=== PATIENT | female | born 1955 | race Caucasian/White ===

== ENCOUNTER 2023-02-08 15:06 | Outpatient (CLI) | payer MEDICARE, SELFPAY ==
--- NOTE | 2023-02-08 14:45 | DI.RAD_ITS ---
Exam(s) XR CHEST 2V PA LATERAL EXAM: XR CHEST 2V PA LATERAL CLINICAL HISTORY: cough, R05.9, r/o pneumonia TECHNIQUE: 2D digital imaging was performed. COMPARISON: No exams were available for comparison FINDINGS: HEART: Normal size. Aorta: Not dilated. PULMONARY VASCULATURE: Normal. LUNGS: Clear. PLEURAL SPACE: No pleural effusion or pneumothorax. BONE:Degenerative disc changes. Hardware lower cervical spine. No compression fractures. IMPRESSION: No acute abnormality. DATA REPOSITORY: RADIATION DOSE DELIVERED:
== END 2023-02-08 15:26 ==
LOC: DI 15:07
PROVIDERS: Visit Provider Physician Assistant
DX: R05.9 Cough, unspecified (principal)
CPT/HCPCS: 71046

== ENCOUNTER 2023-02-08 15:40 | Outpatient (REF) | payer MEDICARE, SELFPAY | END 2023-02-08 15:41 | disposition home or self-care (01) | LOC: LBN 15:40 | PROVIDERS: Visit Provider Physician Assistant | DX: J02.9 Acute pharyngitis, unspecified (principal) | CPT/HCPCS: 87070 ==

== ENCOUNTER 2023-07-05 21:49 | Outpatient (REF) | payer MEDICARE, SELFPAY ==
[2023-07-05 21:37] LABS: Anion Gap 9.1 mmol/L (3-11); BUN 14 mg/dL (7-18); CO2 26.9 mmol/L (21.0-32.0); CREATININE 0.8 mg/dL (0.55-1.02); Calcium 10.2 mg/dL (8.5-10.1); Chloride 100 mmol/L (98-107); Estimated GFR 80.71 (mL/min/1.73m2); Glucose 201 mg/dL (74-106); Sodium 136 mmol/L (136-145)
== END 2023-07-05 21:50 | disposition home or self-care (01) ==
LOC: LBN 21:49
PROVIDERS: PCP Nurse Practitioner Family; Visit Provider Nurse Practitioner Family
DX: Z01.30 Encounter for examination of blood pressure without abnormal findings (principal); I10 Essential (primary) hypertension
CPT/HCPCS: 80048

== ENCOUNTER 2023-09-20 16:03 | Outpatient (REF) | payer MEDICARE, SELFPAY ==
[2023-09-20 20:54] LABS: Abs Immature Grans 0.01 10^3/uL (0.0-0.06); Absolute Basophil Count 0.04 10^3/uL (0.0-0.2); Absolute Eosinophil Count 0.04 10^3/uL (0.0-0.7); Absolute Lymphocyte Count 2.84 10^3/uL (1.2-3.4); Absolute Monocyte Count 0.62 10^3/uL (0.1-0.8); Absolute Neutrophil Count 4.96 10^3/uL (1.2-6.7); Basophils % 0.5; Eosinophils % 0.5; HCT 41.2 % (36.0-46.0); HGB 14.2 g/dL (11.2-15.7); Immature Grans % 0.1; Lymphocytes % 33.4; MCHC 34.5 % (32.0-36.0); MCV 87 fL (80-95); MPV 10.9 fL (8.0-11.0); Monocytes % 7.3; Neutrophils % 58.2; Platelet Count 212 10^3/uL (130-400); RBC 4.73 10^6/uL (3.93-5.22); RDW 11.5 % (11.7-14.6); WBC 8.51 10^3/uL (4.4-10.8)
[2023-09-20 21:06] LABS: ALT 37 U/L (14-59); AST 16 U/L (15-37); Albumin 4.4 g/dL (3.4-5.0); Alkaline Phosphatase 48 U/L (46-116); Anion Gap 11.3 mmol/L (3-11); BUN 19 mg/dL (7-18); Bilirubin, Total 0.4 mg/dL (0.2-1.0); CO2 28.7 mmol/L (21.0-32.0); CREATININE 0.7 mg/dL (0.55-1.02); Calcium 9.8 mg/dL (8.5-10.1); Chloride 100 mmol/L (98-107); Estimated GFR 94.73 (mL/min/1.73m2); Glucose 151 mg/dL (74-106); Magnesium 1.9 mg/dL (1.8-2.4); Potassium 3.7 mmol/L (3.5-5.1); Sodium 140 mmol/L (136-145); Total Protein 7.6 g/dL (6.4-8.2)
== END 2023-09-20 16:04 | disposition home or self-care (01) ==
LOC: LBN 16:03
PROVIDERS: PCP Nurse Practitioner Family; Visit Provider Physician Assistant
DX: J02.9 Acute pharyngitis, unspecified (principal); R53.83 Other fatigue; R53.1 Weakness; E11.9 Type 2 diabetes mellitus without complications; I10 Essential (primary) hypertension; N39.0 Urinary tract infection, site not specified
CPT/HCPCS: 80053; 87077; 83735; 85025; 87070; 87086; 87186

== ENCOUNTER 2023-09-20 16:14 | Outpatient (CLI) | payer MEDICARE, SELFPAY ==
--- NOTE | 2023-09-20 16:00 | RT.EKG_ITS ---
APPROVED REPORT Exam: Resting ECG Reason for Exam: Medication reveiw Patient Location: O HR:78 bpm ECG Measurements Heart Rate 78 AXIS MI 197 P 76 QRSd 94 QRS -7 QT 406 T 80 QTc 463 Conclusion Sinus rhythm...normal P axis, V-rate 50- 99 Normal Electrocardiogram
== END 2023-09-20 16:15 | disposition home or self-care (01) ==
LOC: DI.CM 16:16
PROVIDERS: PCP Nurse Practitioner Family; Visit Provider Physician Assistant
DX: R53.83 Other fatigue (principal)
CPT/HCPCS: 93010

== ENCOUNTER 2024-01-29 11:37 | Outpatient (REF) | payer MEDICARE, SELFPAY | END 2024-01-30 11:38 | disposition home or self-care (01) | LOC: LBN 11:37 | PROVIDERS: PCP Nurse Practitioner Family; Visit Provider Nurse Practitioner Family | DX: R31.9 Hematuria, unspecified (principal); R10.9 Unspecified abdominal pain | CPT/HCPCS: 87086 ==

== ENCOUNTER → 2024-02-14 01:52 | Outpatient (CLI) | payer MEDICARE, SELFPAY ==
--- NOTE | 2024-02-14 07:45 | DI.MRI_ITS ---
Exam(s) MR BRAIN WO EXAM: MR BRAIN WO CLINICAL HISTORY: new slurring of speech, CEREBRAL INFARCTION, GAIT MOBILITY, TIA ATTACK TECHNIQUE: Multiplanar multisequence MRI of the brain was performed. COMPARISON: CR XR CHEST 2V PA LATERAL from 02/08/2023 FINDINGS: CEREBRAL PARENCHYMA: There is no evidence of intracranial hemorrhage, mass effect, or shift of midline structures. There are no extra-axial fluid collections. Ventricles are not enlarged or shifted. There is no significant focal signal abnormality in the cerebellar hemispheres. Mild signal abnormal ity noted slightly left of center in the leif, not associated with restricted diffusion. There is no abnormal signal in the midbrain and thalami. There are multiple foci of FLAIR bright signal abnorma lity in the periventricular white matter consistent chronic small vessel disease. Not associated wit h hemorrhage nor surrounding edema nor restricted diffusion. There is no abnormal signal abnormality in the periventricular white matter. There is no significant focal signal abnormality evident on diffusion imaging to suggest acute ischem ic event. PITUITARY GLAND: No mass nor parasellar abnormality. No obvious abnormality in the cavernous sinuses. FLOW VOIDS: The expected flow void are noted. No evidence of obvious aneurysm nor obvious vascular ma lformation. PARANASAL SINUSES: The visualized paranasal sinuses appear unremarkable. No obvious finding ORBITS: No obvious findings. IMPRESSION: There are multiple bilateral foci of white matter signal abnormality consistent with chronic small ve ssel disease. These are not associated with hemorrhage, surrounding edema nor restricted diffusion. DATA REPOSITORY:
== END ==
PROVIDERS: PCP Nurse Practitioner Family; Visit Provider Nurse Practitioner Family
DX: I63.81 Other cerebral infarction due to occlusion or stenosis of small artery (principal); R26.89 Other abnormalities of gait and mobility; I65.23 Occlusion and stenosis of bilateral carotid arteries
CPT/HCPCS: 70551

== ENCOUNTER → 2024-10-01 12:33 | Outpatient (BNVA) | payer MEDICARE, SELFPAY | PROVIDERS: PCP Nurse Practitioner Family; Referring Provider Nurse Practitioner Family; Visit Provider Psychiatry & Neurology Neurology | DX: I65.23 Occlusion and stenosis of bilateral carotid arteries (principal); R26.0 Ataxic gait | CPT/HCPCS: 99205; G2212 ==

== ENCOUNTER 2024-10-26 01:30 | Outpatient (CLI) | payer MEDICARE, SELFPAY ==
--- NOTE | 2024-10-26 07:15 | DI.MRI_ITS ---
Exam(s) MR CERVICAL SPINE WO EXAM: MR CERVICAL SPINE WO CLINICAL HISTORY: ? cervical myelopathy,ataxic gait,r26.0,bilat carotid artery stenosis TECHNIQUE: Multiplanar multisequence MRI of the cervical spine was performed without intravenous con trast. COMPARISON: No exams were available for comparison FINDINGS: BONES: Prior anterior fusion from C4 through C7. Normal marrow signal. CERVICAL CORD: Craniovertebral junction is unremarkable. The cervical cord is normal size and signal intensity. SOFT TISSUES: Unremarkable. C2-3: No disc herniation or bulge is identified. No evidence of neural foraminal narrowing. No signi ficant central canal stenosis. C3-4: No disc herniation or bulge is identified. No evidence of neural foraminal narrowing. No signif icant central canal stenosis. C4-5: No disc herniation or bulge is identified. No evidence of neural foraminal narrowing. No signif icant central canal stenosis. C5-6: No disc herniation or bulge is identified.Left neural foraminal narrowing. No significant centr al canal stenosis. C6-7: No disc herniation or bulge is identified. Left neural foraminal narrowing. Mild narrowing of t he AP dimension of the central. C7-T1: No disc herniation or bulge is identified. Facet degenerative changes left neural foraminal na rrowing. No significant central canal stenosis. IMPRESSION: Postsurgical changes in the degenerative changes cause mild narrowing of the AP dimension of the cent ral canal C6-7 as well as right neural foraminal narrowing at C5-6 and 667 left neural foraminal narr owing at C7-T1. DATA REPOSITORY:
--- NOTE | 2024-10-26 07:15 | DI.US_ITS ---
Exam(s) US CAROTID EXAM: US CAROTID CLINICAL HISTORY: ? R CCA stenosis,bilat carotid artery stenosis,I65.23. TECHNIQUE: Ultrasound carotids performed using grayscale, color-flow, and spectral Doppler imaging. COMPARISON: No exams were available for comparison FINDINGS: RIGHT CAROTID ARTERY: Plaque: Heavy calcific plaque at the right common carotid bulb and proximal right internal carotid ar kassy. Velocity elevation: None LEFT CAROTID ARTERY: Plaque: There is heavy calcific plaque at the common carotid bulb and proximal left internal carotid artery. Velocity elevation: None. VERTEBRAL ARTERIES: Antegrade flow. Measurements: R Bulb: 82.8cm/s PS / 21.9cm/s ED R CCA: 62.1cm/s PS / 18cm/s ED R ECA: 189.7cm/s PS / 15.8cm/s ED R ICA Prox: 98.4cm/s PS / 23.5cm/s ED R ICA Mid: 82.3cm/s PS / 20.5cm/s ED R ICA Distal: 94.4cm/s PS /27.8cm/s ED R Vert: 24.1cm/s PS / 6cm/s ED R SVR: 1.6 R DVR: 1.3 L Bulb: 82cm/s PS / 30.5cm/s ED L CCA: 56.3cm/s PS / 16.8cm/s ED L ECA: 121.4cm/s PS / 14.3cm/s ED L ICA Prox: 95.4cm/s PS / 26.9cm/s ED L ICA Mid: 60.9cm/s PS / 15.2cm/s ED L ICA Distal: 72cm/s PS / 22.8cm/s ED L Vert: 36.2cm/s PS / 15.3cm/s ED L SVR: 1.7 L DVR: 1.6 IMPRESSION: Heavy focal calcific plaque at the common carotid bulbs and proximal internal carotid arteries causin g less than 50 percent stenosis. Criteria for Carotid Stenosis: Normal: ICA PSV <125 cm/s no plaque or intimal thickening is visible. <50% stenosis: ICA PSV <125 cm/s and plaque or intimal thickening is visible. 50-69% stenosis: ICA PSV is 125-250 cm/s and plaque is visible. >70% stenosis to near occlusion: ICA PSV >250 cm/s with visible plaque and luminal narrowing. DATA REPOSITORY:
== END 2024-10-26 01:50 ==
LOC: DI 01:30
PROVIDERS: PCP Nurse Practitioner Family; Visit Provider Psychiatry & Neurology Neurology
DX: Z98.890 Other specified postprocedural states (principal); I65.23 Occlusion and stenosis of bilateral carotid arteries; M50.022 Cervical disc disorder at C5-C6 level with myelopathy; M99.61 Osseous and subluxation stenosis of intervertebral foramina of cervical region
CPT/HCPCS: 72141; 93880

== ENCOUNTER → 2024-12-14 14:19 | Outpatient (BNVA) | payer MEDICARE, SELFPAY | PROVIDERS: PCP Nurse Practitioner Family; Referring Provider Nurse Practitioner Family; Visit Provider Psychiatry & Neurology Neurology | DX: R26.0 Ataxic gait (principal); I65.23 Occlusion and stenosis of bilateral carotid arteries; R47.1 Dysarthria and anarthria; I10 Essential (primary) hypertension; E11.9 Type 2 diabetes mellitus without complications; J44.9 Chronic obstructive pulmonary disease, unspecified | CPT/HCPCS: 99214 ==

== ENCOUNTER 2025-06-08 14:05 | Outpatient (CLI) | payer MEDICARE, MEDICAID, SELFPAY ==
[2025-06-08 16:18] LABS: ALT 26 U/L (14-59); AST 16 U/L (15-37); Albumin 4.3 g/dL (3.4-5.0); Alkaline Phosphatase 85 U/L (46-116); Anion Gap 10.5 mmol/L (3-11); BUN 16 mg/dL (7-18); Bilirubin, Total 0.4 mg/dL (0.2-1.0); CO2 26.5 mmol/L (21.0-32.0); Calcium 9.7 mg/dL (8.5-10.1); Calculated LDL 147 mg/dL (<100); Chloride 101 mmol/L (98-107); Cholesterol 236 mg/dL (<200); Estimated GFR 93.56 (mL/min/1.73m2); Glucose 133 mg/dL (74-106); HDL Cholesterol 49 mg/dL (>or=50); Potassium 4.0 mmol/L (3.5-5.1); Sodium 138 mmol/L (136-145); Total Protein 8.0 g/dL (6.4-8.2); Triglyceride 203 mg/dL (<150)
== END 2025-06-08 14:06 | disposition home or self-care (01) ==
LOC: LOS 14:06
PROVIDERS: PCP Nurse Practitioner Family; Visit Provider Nurse Practitioner Family
DX: I65.23 Occlusion and stenosis of bilateral carotid arteries (principal)
CPT/HCPCS: 36415; 80053; 80061